=== PATIENT | female | born 1995 | race Caucasian/White ===

== ENCOUNTER 2019-02-18 21:45 | Emergency (ER) | payer BC ==
[2019-02-18] MEDS ORDERED: Lidocaine 1% 30 ML SDV INJECT ONE (21:56)
--- NOTE | 2019-02-18 22:49 | EDM.PDOC ---
ED HPI GENERAL MEDICAL PROBLEM - General Chief Complaint: Laceration Stated Complaint: Laceration to top of right foot Time Seen by Provider: 02/18/19 21:45 Source of Information: Reports: Patient, RN Notes Reviewed History Limitations: Reports: No Limitations - History of Present Illness INITIAL COMMENTS - FREE TEXT/NARRATIVE: Pt. presents to ER with complaints of laceration to top of R foot. Pt. states that she was starting to clean fish and the filet knife fell out of the sheath and fell onto the patient"s R foot. States that tetanus is UTD. She is not a smoker. No history of peripheral vascular disease. Laceration is superficial and pt. denies any issues with moving the toes. Onset: Today Onset Date: 02/18/19 Location: Reports: Lower Extremity, Right Quality: Reports: Sharp Severity: Mild right top foot Pain Score (Numeric/FACES): 0 - Related Data Allergies Allergy/AdvReac Type Severity Reaction Status Date / Time No Known Allergies Allergy Verified 02/18/19 22:04 Home Meds: Home Meds . [No Known Home Meds] 02/18/19 [History] ED ROS GENERAL - Review of Systems Review Of Systems: See Below Constitutional: Reports: No Symptoms HEENT: Reports: No Symptoms Respiratory: Reports: No Symptoms Cardiovascular: Reports: No Symptoms Endocrine: Reports: No Symptoms GI/Abdominal: Reports: No Symptoms : Reports: No Symptoms Musculoskeletal: Reports: Foot Pain Skin: Reports: No Symptoms Neurological: Reports: No Symptoms Psychiatric: Reports: No Symptoms Hematologic/Lymphatic: Reports: No Symptoms Immunologic: Reports: No Symptoms ED EXAM, SKIN/RASH Exam: See Below Exam Limited By: No Limitations Extremities: Normal Range of Motion, Normal Capillary Refill Skin: Wound/Incision (2.5 cm laceration to dorsum of R mid-foot. ) Location, Skin: Lower Extremity, Right ED SKIN PROCEDURES - Laceration/Wound Repair Right Dorsal Foot Lac/Wound length In cm: 2.5 Appearance: Subcutaneous Distal NVT: Neuro & Vascular Intact, No Tendon Injury Local Anesthesia - Lidocaine (Xylocaine): 1% Plain Local Anesthetic Volume: 5cc Skin Prep: Chlorhexidine (Hibiciens), Saline Saline Irrigation (cc's): 1,000 Exploration/Debridement/Repair: Wound Explored, Explored to Base, No Foreign Material Found Closed with: Sutures Suture Size: 3-0 # of Sutures: 5 Suture Type: Nylon Course - Vital Signs Last Recorded V/S: Last Vital Signs Temp 36.3 C 02/18/19 21:45 Pulse 96 02/18/19 21:45 Resp 16 02/18/19 21:45 BP 139/91 H 02/18/19 21:45 Pulse Ox - Orders/Labs/Meds Meds: Medications Discontinued Medications Generic Name Dose Route Start Last Admin Trade Name Edith PRN Reason Stop Dose Admin Lidocaine HCl 30 ml 02/18/19 21:56 02/18/19 22:06 Xylocaine-Mpf 1% INJECT 02/18/19 21:57 5 ml ONETIME ONE Administration Departure - Departure Time of Disposition: 10:49 Disposition: Home, Self-Care 01 Condition: Good Clinical Impression: Laceration - Discharge Information Instructions: Laceration Care, Adult Referrals: PCP,Not In Area [Primary Care Provider] - Forms: ED Department Discharge Additional Instructions: Sutures out in 12 days Return if redness, swelling, or discharge from the area Keep dry for 24 hours. Do not swim until after the sutures are out - Assessment/Plan Plan: Sutures out in 12 days Return if redness, swelling, or discharge from the area Keep dry for 24 hours. Do not swim until after the sutures are out
== END 2019-02-18 22:28 | disposition home or self-care (01) ==
LOC: VM.ED 21:45
DX: S91.311A Laceration without foreign body, right foot, initial encounter (principal); W26.0XXA Contact with knife, initial encounter
CPT/HCPCS: 12001; 99282; J2001